=== PATIENT | female | born 1940 | race Caucasian/White ===

== ENCOUNTER → 2017-08-21 | Outpatient (CLI) | payer MEDICARE, OTHER ==
[~2017-08-21] MED LIST: ACCUPRIL40 MG PO; ASPIRIN325 PO; ATORVASTATIN CA10 MG PO; CALCIUM 600 +1 EAC1 PO; CARVEDILOL25 MG PO; CENTRUM SILVER1 EAC1 PO; CENTRUM SILVER1 EAC4 PO; COLACE100 MG PO; COREG CR20 MG PO; COUMADIN 4 MG TA4 M1 PO; COUMADIN6 MG PO; DIGOXIN125 MCG PO; ELIQUIS5 MG PO; ENOXAPARIN40 MG/0.1 SUBQ; FISH OIL 1,001000 M2 PO; FISH OIL 1,2001 EAC4 PO; HYDRALAZINE 2525 MG PO; HYDROCHLOROTH12.5 MG PO; HYDROCODONE-AP1 EAC6 PO; IBUPROFEN 200200 M1 PO; IBUPROFEN200 M2 PO; IRON325 PO; KLOR-CON 1010 MEQ PO; LASIX 40 MG TAB40 M2 PO; LASIX 40 MG TAB40 MG PO; LIPITOR10 MG PO; MILK OF MA2400 MG/10 PO; MIRALAX17 GM PO; NAPROSYN500 MG PO; NEURONTIN 300M300 M2 PO; NORCO 5-325 TA1 EACH PO; OSTEO BI-FLEX1 EAC1 PO; OSTEO BI-FLEX1 EACH PO; OXYCODONE HCL 55 MG PO; QUINAPRIL 20 MG20 MG PO; SYSTANE BALANCE10 ML; SYSTANE BALANCE10 ML OP; TRAMADOL 50 MG50 MG PO; TYLENOL PM EX-1 EACH PO; ULTRAM 50MG TAB50 MG PO; UNICOMPLEX M TA1 TA1 PO; ZYRTEC10 M2 PO
[2017-08-21 11:32] LABS: CALCIUM 8.8 mg/dL (8.5-10.1); POTASSIUM 4.3 mmol/L (3.5-5.1)
== END ==
LOC: M.LAB 11:04
PROVIDERS: Internal Medicine Cardiovascular Disease
DX: I42.8 Other cardiomyopathies (principal)

== ENCOUNTER → 2018-04-15 | Outpatient (CLI) | payer MEDICARE, OTHER ==
[~2018-04-15] VITALS: Ht 175.3 cm; Wt 113.4 kg
[2018-04-15 11:35] LABS: HEMATOCRIT 39.8 % (37.0-47.0); HEMOGLOBIN 13.4 gm/dL (12.0-15.0); MCH 31.4 pg (26.0-34.0); MCHC 33.6 g/dL (28.0-37.0); MCV 93.4 fL (80.0-100.0); MPV 7.5 fl. (7.2-11.1); RBC 4.26 mil/uL (4.20-5.00); RDW-CV 13.3 % (10.5-14.5); WBC 8.2 thou/uL (4.0-11.0)
[2018-04-15 11:36] VITALS: BP 151/68
[2018-04-15 11:47] LABS: ANION GAP 8 mmol/L (7-16); BUN 12 mg/dL (7-18); CHLORIDE 104 mmol/L (98-107); CO2 30 mmol/L (21-32); CREATININE 0.9 mg/dL (0.6-1.3); GLUCOSE 104 mg/dL (70-99); POTASSIUM 4.1 mmol/L (3.5-5.1); SODIUM 142 mmol/L (136-145)
[2018-04-15 11:48] LABS: PROTIME 10.7 Seconds (9.20-11.50)
[2018-04-15 11:51] LABS: ALBUMIN 3.6 g/dL (3.4-5.0); ALKALINE PHOSPHATASE 58 U/L (46-116); CHOLESTEROL 160 mg/dL (<200); HDL CHOLESTEROL 50 mg/dL (>40); LDL CHOLESTEROL 80 mg/dL (<100); SGOT 16 U/L (15-37); SGPT 20 U/L (30-65); TC:HDL 3.2 Ratio (Not establshd); TOTAL PROTEIN 6.8 g/dL (6.4-8.2); TRIGLYCERIDE 153 mg/dL (<150); VLDL 31 mg/dL (<40)
[2018-04-15 11:52] LABS: SERUM ASSESSMENT Clear
[2018-04-15 13:06] VITALS: BP 161/60
[2018-04-15 13:30] VITALS: BP 171/76
[2018-04-15 13:45] VITALS: BP 154/88
--- NOTE | 2018-04-15 16:30 | EKG ---
[place] [address] ELECTROCARDIOGRAM REPORT Name: SERA SULTANA Room: [facility]#: [id number] Admission: 04/15/18 Attend Phys: Khoa Linton MD Discharge: Date of : 42 Report #: [id number] THIS REPORT FOR: //name// 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: : 1940 Requested By: Khoa Linton Order Number: [id number] Reading MD: Khoa Linton Measurements Intervals [place] Rate: 83 P: ID: QRS: -30 QRSD: 156 T: 99 QT: 436 QTc: 513 Interpretive Statements Atrial fibrillation Paired ventricular premature complexes Left bundle branch block Compared to ECG 12/15/2015 12:45:14 Ventricular premature complex(es) now present Electronically Signed On 04-15-2018 16:30:31 [employer] MARK[employer] by Khoa Linton [email or web address] <ELECTRONICALLY SIGNED> By: Khoa Linton MD, FACC 04/15/18 1630 1142 1142 Khoa Linton MD, [facility] /EPI
--- NOTE | 2018-04-15 18:08 | CARD ---
[address] [address] CARDIAC CATH REPORT Name: KAYYSERA L [id number] Admission: 04/15/18 Attend Phys: Khoa Linton MD Discharge: Date of : 42 Report #: [id number] THIS REPORT FOR: //name// APPROVED REPORT Study performed: 04/15/2018 11:59:09 Patient Details Patient Status: Out-Patient Room #: The patient is a 78 year-old female Event Personnel Khoa Linton Commercial Singer, Neelima Miranda RN Butadiene Converter Operator, Jo Melgar RTNanci Monitor, Ivette Maik Scrub, Prudence Carlos Monitor Procedures Performed Art Access - R radial artery , Selective Right and Left Coronary AngiographyLe Heart Cath w/or w/o Coronaries [id number] [facility] Procedure Narrative The patient was brought electively to the Cardiac Catheterization Laboratory and was prepped and draped in a sterile manner. The right wrist was infiltrated with 2% Lidocaine subcutaneous anesthesia. A Slender Glidesheath sheath was inserted into the right radial artery. Coronary angiography was performed using coronary diagnostic catheters. The right coronary system was accessed and visualized with a 3DRC 6fr catheter. The left coronary system was accessed and visualized with a DCR: Alma 4.0 5fr catheter. The left ventricle was accessed and visualized with a PC: Angled Pig 5fr catheter. Left ventricular/Aortic Valve gradient assessed via catheter pullback. Left ventriculogram was performed in GONZALES projection. Closure device was deployed with a Fr Vasc-Band Reg 24cm. Intraoperative Conscious Sedation Sedation start time: 12:25 Case end Time: 12:47 Fentanyl 25 mcg Versed 2 mg Fluoro Time: 7.4 minutes Dose: DAP 70674 cGycm2 1428.31 mGy Contrast Type and Amount: Visipaque 100 ml Coronary Angiography The patient's coronary [place] [address] CARDIAC CATH REPORT Name: KAYYSERA Jarret Room: [facility]#: [id number] Admission: 04/15/18 Attend Phys: Khoa Linton MD Discharge: Date of : 42 Report #: [id number] [place] Artery Percent Stenosis Left Main: 0 % Prox LAD: % Mid/Distal LAD: % Circumflex: % RCA: % Ramus: % Diagnostic Cath Left Main normal LAD proximal normal, mid 50-60% ,smooth stenosis Diagonal 1 small normal Diagonal 2 small normal Circumflex normal OM1 normal, small OM2 small,normal OM3 normal L PDA small normal Right Coronary large, normal vessel R PDA 30%,large RPLV normal Left Ventriculography The left ventricle is normal in size with normal contractility. The left ventricular ejection fraction is estimated to be 50%. Left ventricular wall motion abnormalities are not present. There is 1+ mitral insufficiency. Hemodynamics The aortic pressure is 154/77 mmHg with a mean of mmHg. The left ventricular pressure is 134/12 mmHg with a mean of mmHg. The left ventricular end diastolic pressure is 16 mmHg. Conclusion 1. Moderate CAD of LAD vessel 2. low normal EF 3. afib Recommendations Medical Therapy <ELECTRONICALLY SIGNED> By: Khoa Linton MD, FACC 04/15/181807 07 07Khoa Linton MD, FACC /INF
== END | disposition home or self-care (01) ==
LOC: M.CL 10:40
PROVIDERS: Internal Medicine Cardiovascular Disease
DX: I25.10 Atherosclerotic heart disease of native coronary artery without angina pectoris (principal); I48.91 Unspecified atrial fibrillation; I10 Essential (primary) hypertension; E78.5 Hyperlipidemia, unspecified; M17.12 Unilateral primary osteoarthritis, left knee; Z90.710 Acquired absence of both cervix and uterus; Z98.890 Other specified postprocedural states; Z79.899 Other long term (current) drug therapy; Z88.8 Allergy status to other drugs, medicaments and biological substances; Z79.891 Long term (current) use of opiate analgesic; Z96.652 Presence of left artificial knee joint

== ENCOUNTER 2018-09-29 10:28 | Inpatient (IN) | payer MEDICARE, OTHER ==
[2018-09-11 09:01] LABS: ABSOLUTE BASOPHILS 0.1 thou/uL (0.0-0.2); ABSOLUTE EOSINOPHILS 0.3 thou/uL (0.0-0.7); ABSOLUTE LYMPHOCYTES 2.3 thou/uL (0.8-5.3); ABSOLUTE MONOCYTES 1.3 thou/uL (0.0-1.2); ABSOLUTE NEUTROPHILS 6.1 thou/uL (1.6-8.1); BASOPHILS 0.9 %; EOSINOPHILS 2.7 %; HEMATOCRIT 37.8 % (37.0-47.0); HEMOGLOBIN 12.6 gm/dL (12.0-15.0); LYMPHOCYTES 23.1 %; MCH 31.2 pg (26.0-34.0); MCHC 33.4 g/dL (28.0-37.0); MCV 93.4 fL (80.0-100.0); MONOCYTES 12.8 %; MPV 7.3 fl. (7.2-11.1); NUCLEATED RBCS 0 /100WBC; PLATELET COUNT* 191 thou/uL (150-400); POLYS 60.5 %; RBC 4.05 mil/uL (4.20-5.00); RDW-CV 13.5 % (10.5-14.5); WBC 10.1 thou/uL (4.0-11.0)
[2018-09-11 09:07] LABS: APTT 33.8 Seconds (25.0-31.3); INR 1.1; PROTIME 10.8 Seconds (9.20-11.50)
[2018-09-11 09:09] LABS: ALBUMIN 3.2 g/dL (3.4-5.0); CREATININE 1.4 mg/dL (0.6-1.3); POTASSIUM 4.2 mmol/L (3.5-5.1); TOTAL BILIRUBIN 0.5 mg/dL (<0.1-1.0); TOTAL PROTEIN 6.6 g/dL (6.4-8.2)
[2018-09-11 10:06] LABS: ESR (SEDRATE) 30 mm/hr (0-30)
[2018-09-11 23:06] LABS: GLYCOHEMOGLOBIN (HGB A1C) 5.5 % (4.8-5.6)
[~2018-09-29] VITALS: Ht 175.3 cm; Wt 118.8 kg
[~2018-09-29 10:28] MED LIST changes: +CLARITIN10 MG PO; +LOSARTAN POTAS100 MG PO; +VITAMIN D3400 UNIT PO
[2018-09-29] MEDS ORDERED: TYLENOL325 MG PO (10:46)
[2018-09-29 11:26] VITALS: BP 155/64
[2018-09-29 17:35] VITALS: BP 160/90
[2018-09-29 20:00] VITALS: BP 143/44
[2018-09-30 04:19] LABS: HEMATOCRIT 32.5 % (37.0-47.0); HEMOGLOBIN 10.8 gm/dL (12.0-15.0)
[2018-09-30 05:00] VITALS: BP 111/46
[2018-09-30 08:00] VITALS: BP 118/54
[2018-09-30 11:37] VITALS: BP 93/27
[2018-09-30 16:46] VITALS: BP 85/41
[2018-09-30 20:45] VITALS: BP 106/59
[2018-10-01] VITALS: BP 146/46
[2018-10-01 04:00] VITALS: BP 149/42
[2018-10-01 05:43] LABS: HEMATOCRIT 26.2 % (37.0-47.0)
[2018-10-01 05:49] LABS: HEMOGLOBIN 8.8 gm/dL (12.0-15.0)
--- NOTE | 2018-10-01 07:08 | OP ---
[address] [address] OPERATIVE REPORT Name: KAYYSERA Room: [address] IN [facility]#: [id number] Admission: 09/29/18 Attend Phys: Lucho Marinelli MD Discharge: Date of : 42 Report #: [id number] THIS REPORT FOR: //name// CC: Aiden Otero DATE OF SERVICE: 09/29/2018 FAMILY PHYSICIAN: Dr. Aiden Vela. PREOPERATIVE DIAGNOSIS: Advanced degenerative joint disease, right knee. POSTOPERATIVE DIAGNOSIS: Advanced degenerative joint disease, right knee. OPERATION PERFORMED: Right total knee arthroplasty. SURGEON: Nic Otero DO WEATHERCASTER: Ubaldo Draper DO. SECOND MEAT MOLDER: Heriberto Tamayo DO. ANESTHESIA: General with presurgical block, Anesthesia Department. GROSS PATHOLOGY: There was evidence of advanced degenerative joint disease to the right knee. This is consistent with x-rays from my office. IMPLANTS UTILIZED: Nadiya Persona Femur CR, size 10, tibia size F, patella 35 mm, articular surface size 13 (MC). DESCRIPTION OF PROCEDURE: The patient was brought to the Operating Room where general anesthetic was administered. Preoperative antibiotics were given. Hibiclens scrub and a ChloraPrep, prep was done to the right leg. The patient was draped in a sterile manner. An incision was made from the superior pole of patella to the tibial tuberosity. 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 Dissection continued where a medial arthrotomy was performed and the patella was dislocated laterally. Osteophytes were trimmed accordingly. The starting holes made in the distal femur. The intramedullary guide was inserted into this. The distal femoral cutting guide was placed into the IM guide, held in place with pins. The distal femur was cut. Attention was turned to the tibia utilizing the extramedullary guide, it was adjusted accordingly, held in place with pins, the proximal tibia was cut. The articular spacer 10 was utilized, which confirmed the implants would fit. The pins were removed. Attention was turned to the femur. Utilizing the guide, it was placed into position with the 10 being the best fit. The three [place] [address] OPERATIVE REPORT Name: KAYYSERA Jarret Room: [address]#: [id number] Admission: 09/29/18 Attend Phys: Lucho Marinelli MD Discharge: Date of : 42 Report #: [id number] accordingly. The captured femoral block was placed into position, held in place with pins. The captured cuts were made in the usual manner. Attention was turned to the tibia where the tibia base plate was placed into position, adjusted accordingly and held in place with the magnetic screws. The articular surface was placed into position after the patella component was placed in position, they fit well. The patella was then sized and the patella was resurfaced utilizing the Nadiya resurfacing device. It was measured. Holes were drilled. The patella button was placed into the patella. Again, the knee was checked for range of motion and noted to be stable. The tourniquet was then inflated to 320 mmHg on the right upper thigh. The femoral holes were drilled. Trial components were removed. The hole was then drilled into the proximal tibia and the proximal tibia was broached. All components were removed. Utilizing bone material, the distal femoral hole for the IM guide was then plugged with these bone material. The knee was pulsatile lavaged. Cement was mixed. The components were cemented into position. They were held into position as well as the patellar clamp. After hardening was completed, any excess cement was removed. The 13 mm was found to be the best spacer. The final spacer was impacted in position with the Nadiya snap click noted confirming its seating. Again, the knee was irrigated as well as Betadine solution. It was then removed with normal saline. TXA was placed in the knee. The tourniquet deflated to 0. The medial arthrotomy site was closed with #1 Vicryl, with subcutaneous 2-0 Vicryl and running subcutaneous 2-0 Monocryl. The skin was glued. The patient was transferred to the recovery room in stable condition after sterile dressings were applied. Estimated blood loss approximately 150 mL. The needle and sponge count reported as correct and the wound was thoroughly irrigated through the procedure. <ELECTRONICALLY SIGNED> By: Edgar Matias DO 10/01/18 0708 1512 1939Nic Otero DO /nt
[2018-10-01 07:40] VITALS: BP 110/65
[2018-10-01] MEDS ORDERED: COLACE100 MG PO (08:16)
[2018-10-01] MEDS ORDERED: HYDROCODONE-AP1 EAC6 PO (08:16)
[2018-10-01] MEDS ORDERED: DULCOLAX5 MG PO (08:16)
[2018-10-01 12:30] VITALS: BP 149/50
[2018-10-01 15:04] LABS: URINE BILIRUBIN NEGATIVE (Negative); URINE BLOOD NEGATIVE (Negative); URINE CLARITY CLEAR; URINE COLOR YELLOW; URINE GLUCOSE-RANDOM NEGATIVE (Negative); URINE KETONES TRACE (Negative); URINE LEUKOCYTES 1+ (Negative); URINE NITRITE NEGATIVE (Negative); URINE PROTEIN NEGATIVE (Negative); URINE UROBILINOGEN 0.2 E.U./dl (0.2-1.0)
[2018-10-01 15:07] LABS: BE 1.2 mmol/L (-2 to +3); PCO2 37.3 mmHg (35.0-45.0); pH 7.448 (7.340-7.450)
[2018-10-01 15:14] LABS: PO2 53.6 mmHg (75.0-100.0)
[2018-10-01 15:23] LABS: BACTERIA 1-9 Few /HPF (None Seen); CASTS None Seen /LPF (None Seen); CRYSTALS None Seen /LPF (None Seen); MUCUS None Seen strn/LPF (None Seen); SQUAMOUS >10 Many /LPF (0-3); URINE RBC None Seen /HPF (0-2); URINE WBC >25 Many /HPF (0-5)
[2018-10-01 16:25] VITALS: BP 133/44
[2018-10-01 21:46] VITALS: BP 142/65
[2018-10-02 08:00] VITALS: BP 153/59
[2018-10-02] MEDS ORDERED: ULTRAM 50MG TAB50 MG PO (08:18)
[2018-10-02] MEDS ORDERED: LIDOCAINE PAIN1 EACH TOP (08:24)
[2018-10-02 14:33] VITALS: BP 153/59
== END 2018-10-02 15:34 | DRG 469 ==
LOC: M.SUR 10:28 → M.ORTHSURG 17:04 → M.TBA 17:04 → M.ORTHSURG 17:16
PROVIDERS: Orthopaedic Surgery; ADMIT Internal Medicine
PROC: 0SRC0J9 Replacement of Right Knee Joint with Synthetic Substitute, Cemented, Open Approach (ICD-10-PCS; principal; 2018-09-29)
DX: M17.11 Unilateral primary osteoarthritis, right knee (principal); G92 Toxic encephalopathy; J96.01 Acute respiratory failure with hypoxia; I50.32 Chronic diastolic (congestive) heart failure; D50.0 Iron deficiency anemia secondary to blood loss (chronic); I11.0 Hypertensive heart disease with heart failure; E78.5 Hyperlipidemia, unspecified; I48.2 Chronic atrial fibrillation; Z79.82 Long term (current) use of aspirin; Z79.899 Other long term (current) drug therapy; Z88.1 Allergy status to other antibiotic agents; Z87.81 Personal history of (healed) traumatic fracture; Z90.710 Acquired absence of both cervix and uterus; Z82.49 Family history of ischemic heart disease and other diseases of the circulatory system; Z87.891 Personal history of nicotine dependence

== ENCOUNTER → 2018-10-08 | Outpatient (CLI) | payer MEDICARE, OTHER ==
[~2018-10-08] MED LIST changes: +DULCOLAX5 MG PO; +LIDOCAINE PAIN1 EACH TOP; +TYLENOL325 MG PO
[2018-10-08 10:03] VITALS: BP 138/70; BP 140/68; BP 149/68; BP 158/71
[2018-10-08 12:05] VITALS: BP 138/70; BP 140/68; BP 142/70; BP 155/67
--- NOTE | 2018-10-08 15:13 | NUR ---
ARRIVED PER WHEELCHAIR. TRANSFERED SELF TO RECLINER. ASHA DOBSON APPLIED AND SET AT MED HEAT AFTER PT VERBALIZED BEING COLD. 2 UNITS PRBC COMPLETED AND TOELRATED WELL. PT TAKEN TO [facility] WHEN TRANSFUSION COMPLETED. DENIES NEEDS AT TIEM OF DISCHARGE FROM INFUSION LAB. CALL PLACED TO [facility] AND SPOKE WITH PRIMARY RN RIRI AND REPORT GIVEN.
[2018-10-08 15:32] LABS: HEMATOCRIT 27.4 % (37.0-47.0); HEMOGLOBIN 9.1 gm/dL (12.0-15.0); MCH 30.7 pg (26.0-34.0); MCHC 33.3 g/dL (28.0-37.0); MPV 6.6 fl. (7.2-11.1); RBC 2.98 mil/uL (4.20-5.00); RDW-CV 14.5 % (10.5-14.5); WBC 11.4 thou/uL (4.0-11.0)
[2018-10-08 15:39] LABS: CALCIUM 8.7 mg/dL (8.5-10.1); CREATININE 1.4 mg/dL (0.6-1.3); POTASSIUM 4.6 mmol/L (3.5-5.1)
== END ==
LOC: M.ULTRA 07:52 → M.INFUS 07:52
PROVIDERS: Internal Medicine
DX: D50.0 Iron deficiency anemia secondary to blood loss (chronic) (principal)

== ENCOUNTER → 2018-12-09 | Outpatient (CLI) | payer MEDICARE, OTHER | LOC: M.LAB 12:29 | DX: I48.1 Persistent atrial fibrillation (principal) ==